=== PATIENT | female | born 1950 | race Caucasian/White ===

== ENCOUNTER → 2020-09-16 11:49 | Outpatient (BNVA) | payer MEDICARE, SELFPAY | PROVIDERS: PCP Nurse Practitioner Family; Visit Provider Nurse Practitioner Family | DX: I10 Essential (primary) hypertension (principal); Z96.643 Presence of artificial hip joint, bilateral; I89.0 Lymphedema, not elsewhere classified; F32.9 Major depressive disorder, single episode, unspecified; K21.9 Gastro-esophageal reflux disease without esophagitis; G25.81 Restless legs syndrome; I82.409 Acute embolism and thrombosis of unspecified deep veins of unspecified lower extremity; E03.9 Hypothyroidism, unspecified; M19.90 Unspecified osteoarthritis, unspecified site; Z68.22 Body mass index [BMI] 22.0-22.9, adult; Z77.22 Contact with and (suspected) exposure to environmental tobacco smoke (acute) (chronic); Z71.89 Other specified counseling | CPT/HCPCS: 80053; 80061; 82306; 82607; 83735; 84439; 84443; 85025 ==

== ENCOUNTER 2020-09-23 06:00 | Outpatient (RCR) | payer MEDICARE, SELFPAY | END 2020-10-11 23:59 | disposition home or self-care (01) | LOC: SPT 06:00 | PROVIDERS: PCP Nurse Practitioner Family; Referring Provider Nurse Practitioner Family; Visit Provider Nurse Practitioner Family | DX: I89.0 Lymphedema, not elsewhere classified (principal); Z47.1 Aftercare following joint replacement surgery; Z96.643 Presence of artificial hip joint, bilateral | CPT/HCPCS: 29581; 97140; 97161 ==

== ENCOUNTER 2020-11-02 15:50 | Inpatient (IN) | payer MEDICARE, SELFPAY ==
[2020-11-02] VITALS (29 sets, daily range): BP systolic 76–146; BP diastolic 55–107; PULSE 91–170; RESP 15–24; O2SAT 55–97; BMI 28.8
[2020-11-02 16:11] LABS: ABG PCO2 24.6 mmHg (35-45); ABG PH Result 7.49 (7.35-7.45); Arterial Blood Gas Hematocrit 26.4 % (37-47); Base Excess ABG -3.6 mmol/L (-2.0-2.0); Blood Gas Allen Test Pos; Blood Gas Operator Identificat MONRO; Blood Gas Sample Site Radial, right; Blood Gas Sample Type Arterial; Carboxyhemoglobin 0.3 %THgb (0.4-20.1); HCO3 ABG 18.9 mmol/L (22-26); HGB O2 Sat 91.7 % (95-100); Ionized Calcium Level - ABG 1.1 mmol/L (1.1-1.4); Methemoglobin 2.7 % (0.4-1.5); Oxygen Device NC; Oxygen Saturation ABG 94.6; PO2 ABG 72.3 mmHg (80.0-100.0); Potassium Level - ABG 3.4 mmol/L (3.5-5.0); Total Hemoglobin 8.6 g/dL (12-16)
--- NOTE | 2020-11-02 16:32 | XRR_ITS ---
PROCEDURE INFORMATION: Exam: XR Chest Exam date and time: 11/02/2020 4:32 PM Age: 69 years old Clinical indication: Device placement; Other: Central line placement TECHNIQUE: Imaging protocol: XR of the chest. Views: 1 view. COMPARISON: No relevant prior studies available. FINDINGS: Tubes, catheters and devices: Right neck central venous catheter terminates distal superior vena cava. Lungs: Unremarkable. No consolidation. Densely calcified granuloma left lateral mid lung zone. Pleural spaces: Small volume left pleural effusion. Negative for pneumothorax. Heart/Mediastinum: Unremarkable. No cardiomegaly. Bones/joints: Unremarkable. Intraperitoneal space: Surgical changes in the upper abdomen. XR/XR chest 1V portable [id number] IMPRESSION: 1. Satisfactory central venous catheter positional. 2. No acute pulmonary complication.
--- NOTE | 2020-11-02 16:40 | ED_ITS ---
HPI - Altered Mental Status General: Chief Complaint: Neuro Symptoms/Deficit Stated Complaint: HYPOTENSION; SLURRED SPEECH Time Seen by Provider: 11/02/20 16:40 History of Present Illness: HPI narrative: Ms. Olvera is a 69-year-old lady with somewhat unclear past medical history presents to the emergency department due to altered mental status and hypotension. Per EMS report symptom onset was a number of days ago though the exact time of onset was unclear. There is perhaps progressive worsening of symptoms and patient is now altered. Per chart review she has a history of infected right hip prosthesis requiring removal leading to chronic pain and debility. Additionally she perhaps has GERD. History otherwise limited by altered mental status and acuity of condition. 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, has had infection around prosthesis GERD (gastroesophageal reflux disease) History of infection right hip, treated in [place], [place] Hx of cervical cancer Hx pulmonary embolism Hypertension Hypothyroid TSH 09/16/20 0.92, Free T4 1.14 Lymphedema Osteoarthritis Restless leg Surgical History (Updated 11/02/20 @ 20:53 by Olivia Brooks MD) Hx of bilateral hip replacements Hx of gastric bypass Hx of hysterectomy Family History (Updated 11/02/20 @ 21:51 by Olivia Brooks MD) Denies family history of Anesthesia complication Social History (Updated 11/02/20 @ 21:51 by Olivia Brooks MD) Smoking and tobacco status: never smoked Second hand smoke exposure: Yes Alcohol intake: current Alcohol intake frequency: few times a month Alcohol type: wine Caregiver/support person: Yes Lives independently: No Household members: significant other Marital status: Current occupational status: retired Current occupation: RN Current gender identity: Female Special keesha needs: No Agree to transfusion: Yes Physical Exam Narrative: EXAM NARRATIVE: GENERAL/CONSTITUTIONAL -ill-appearing. Distressed. Eyes - PERRL, no conjunctival injection ENMT - Atraumatic external nose and ears. Dry mucous membranes NECK - supple. trachea midline CARDIOVASCULAR - regular rate and rhythm. RESPIRATORY -coarse to auscultation bilaterally. No retractions or accessory muscle use. ABDOMEN/GI -mild tenderness diffusely, Nondistended. No tenderness to percussion or evidence of peritonitis MSK -there is internal rotation and obvious abnormality to the right hip consistent with reported history SKIN -cool, Dry. Sacral skin breakdown as well as scattered other areas of skin breakdown. NEURO -alert to painful stimuli, no meaningful history. Patient moaning. PSYCH -impaired cognition and memory Procedures ABG Interpretation ABG Interpretation 1: ABG Results: 7.49, 24.6, 72.3, 18.9 Interpretation: abnormal Additional Comments: Likely primary metabolic derangement with respiratory compensation. Arterial Line Time Out Performed: Yes Size (Gauge): 20 Technique Used: guide wire technique Post-Procedure: dry sterile dressing placed Patient Tolerated Procedure: well Complications: none Site: right Additional Comments: First attempted left and was unable to thread wire despite flash. Dressing applied with compression. Central Line Placement Right IJ: Time Out Performed: Yes Patient Placed on Monitor/Pulse Ox: Yes MD Prep: mask, gown and gloves Central Line Prep: Povidone-Iodine 1% and Chlorhexidine scrub Local Anesthetic: lidocaine 1% Amount of anesthesia used (mL): 3 Ultrasound Used for Placement: Yes Central Line Lumen Inserted: triple Post Procedure: sutured in place, good blood return, all ports aspirated, flushed, capped and sterile dressing applied Post Procedure X-Ray: tip of catheter in good position Patient Tolerated Procedure: well Complications: none Course ED course: - Patient was seen and evaluated by me at bedside - Patient placed on cardiac monitors, IV access obtained - Initial evaluation notable for ill appearance, patient with altered mental status. -Extreme difficulty with IV access. Despite [id number] ultrasound for peripheral IV no suitable vein was identified due to degree of anasarca. Central line placed under emergent conditions. -Fluids and antibiotics ordered. - Labs notable for leukopenia, macrocytic anemia. Metabolic panel without obvious abnormality to explain patient's profound condition - Imaging notable for no acute intracranial hemorrhage or mass. No other significant internal traumatic injury or obvious source of infection. Abnormal right hip arthroplasty as described in history -Since initial arrival blood pressure has been difficult to track. Arterial line inserted. - Based on patient history, evaluation, labs, and imaging as interpreted the most likely cause of the patient's condition is unclear, the patient is critically ill with multiorgan dysfunction. - patient's fianc? updated -Hospitalist service consulted and agreed to admit the patient. - Patient was admitted in critical condition Vital Signs: Vital signs: Vital Signs Temperature 0 F L 11/03/20 13:18 Pulse Rate 0 L 11/03/20 13:18 Respiratory Rate 0 L 11/03/20 13:18 Blood Pressure 0/0 11/03/20 13:18 Pulse Oximetry 0 L 11/03/20 13:18 MDM - Altered Mental Status Lab Data: Labs: Lab Results 11/02/20 11/02/20 11/02/20 Range/Units 15:58 17:06 17:06 WBC (4.0-10.0) 10^3/ uL RBC (4.1-5.3) 10^6/u L Hgb (11.5-15.3) g/dL Hct (37.0-47.0) % MCV (81-99) fl MCH (28.0-34.0) pg MCHC (30.0-36.0) g/dL RDW (12.1-15.1) % Plt Count (130-400) 10^3/c mm MPV (7.4-10.4) fL Neut % (Auto) % Lymph % (Auto) % Smith % (Auto) % Eos % (Auto) % Baso % (Auto) % Neut # (Auto) (1.8-7.7) 10^3/u L Lymph # (Auto) (0.8-4.8) 10^3/u L Smith # (Auto) (0.2-0.9) 10^3/u L Eos # (Auto) (0.0-0.8) 10^3/u L Baso # (Auto) (0.0-0.1) 10^3/u L Nucleated RBC % (a uto) % Nucleated RBCs # /100WBC Specimen Type Arterial Sample Site Radial, right ABG pH 7.49 H (7.35-7.45) ABG pCO2 24.6 L (35-45) mmHg ABG pO2 72.3 L (80.0-100.0) mmH g ABG HCO3 18.9 L (22-26) mmol/L ABG O2 Saturation 94.6 ABG Base Excess -3.6 L (-2.0-2.0) mmol/ L Valentin Test Pos A-a O2 Gradient 16.0 H (5-10) mmHg Hematocrit 26.4 L (37-47) % Hgb O2 Saturation 91.7 L (95-100) % Carboxyhemoglobin 0.3 L (0.4-20.1) %THgb Methemoglobin 2.7 H (0.4-1.5) % Total Hemoglobin 8.6 L (12-16) g/dL Sodium 133.0 136 (131-143) mmol/L Potassium 3.4 L 3.6 (3.5-5.0) mmol/L Glucose 59.0 L 51 L (70-115) mg/dL Ionized Calcium 1.1 (1.1-1.4) mmol/L O2 Delivery Device Nc O2 Liters/Min 3.0 % FiO2 32.0 % Packing And Final Assembly Supervisor ID Monro Chloride 104 (98-107) mmol/L Carbon Dioxide 18 L (22-29) mmol/L Anion Gap 17.6 (5-19) BUN 36 H (8-23) mg/dL Creatinine 1.4 H (0.5-0.9) mg/dL GFR Calculation 37.5 L (90-130) mL/min Calculated Osmolal ity 288 (285-295) mOsm/k g Lactic Acid 3.2 H (0.5-2.2) mmol/L Calcium 7.1 L (8.5-10.5) mg/dL Total Bilirubin 1.0 (0.15-1.2) mg/dL AST 32 (0-32) U/L ALT 23 (0-33) U/L Alkaline Phosphata se 156 H (35-105) IU/L Creatine Kinase 103 (26-192) U/L Troponin T Baselin e (0-10) ng/L NT-Pro-B Natriuret Pep 8507 H (0-125) pg/mL Total Protein 3.2 L (6.6-8.7) g/dL Albumin 1.5 L (3.5-5.2) g/dL Globulin 1.7 (1.3-4.6) g/dL Procalcitonin 34.16 H (0-0.5) ng/mL 11/02/20 11/02/20 Range/Units 17:06 17:06 WBC 1.9 L (4.0-10.0) 10^3/ uL RBC 2.49 L (4.1-5.3) 10^6/u L Hgb 8.4 L (11.5-15.3) g/dL Hct 26.6 L (37.0-47.0) % MCV 106.8 H (81-99) fl MCH 33.7 (28.0-34.0) pg MCHC 31.6 (30.0-36.0) g/dL RDW 20.8 H (12.1-15.1) % Plt Count 208 (130-400) 10^3/c mm MPV 10.6 H (7.4-10.4) fL Neut % (Auto) 84.6 % Lymph % (Auto) 9.0 % Smith % (Auto) 4.8 % Eos % (Auto) 0.5 % Baso % (Auto) 1.1 % Neut # (Auto) 1.60 L (1.8-7.7) 10^3/u L Lymph # (Auto) 0.2 L (0.8-4.8) 10^3/u L Smith # (Auto) 0.1 L (0.2-0.9) 10^3/u L Eos # (Auto) 0.0 (0.0-0.8) 10^3/u L Baso # (Auto) 0.0 (0.0-0.1) 10^3/u L Nucleated RBC % (a uto) 0 % Nucleated RBCs # 0.0 /100WBC Specimen Type Sample Site ABG pH (7.35-7.45) ABG pCO2 (35-45) mmHg ABG pO2 (80.0-100.0) mmH g ABG HCO3 (22-26) mmol/L ABG O2 Saturation ABG Base Excess (-2.0-2.0) mmol/ L Valentin Test A-a O2 Gradient (5-10) mmHg Hematocrit (37-47) % Hgb O2 Saturation (95-100) % Carboxyhemoglobin (0.4-20.1) %THgb Methemoglobin (0.4-1.5) % Total Hemoglobin (12-16) g/dL Sodium (131-143) mmol/L Potassium (3.5-5.0) mmol/L Glucose (70-115) mg/dL Ionized Calcium (1.1-1.4) mmol/L O2 Delivery Device O2 Liters/Min % FiO2 % Packing And Final Assembly Supervisor ID Chloride (98-107) mmol/L Carbon Dioxide (22-29) mmol/L Anion Gap (5-19) BUN (8-23) mg/dL Creatinine (0.5-0.9) mg/dL GFR Calculation (90-130) mL/min Calculated Osmolal ity (285-295) mOsm/k g Lactic Acid (0.5-2.2) mmol/L Calcium (8.5-10.5) mg/dL Total Bilirubin (0.15-1.2) mg/dL AST (0-32) U/L ALT (0-33) U/L Alkaline Phosphata se (35-105) IU/L Creatine Kinase (26-192) U/L Troponin T Baselin e 28 H (0-10) ng/L NT-Pro-B Natriuret Pep (0-125) pg/mL Total Protein (6.6-8.7) g/dL Albumin (3.5-5.2) g/dL Globulin (1.3-4.6) g/dL Procalcitonin (0-0.5) ng/mL Critical Care Time Critical Care Time: Critical Care Time: Yes Total Critical Care Time: 120 Attestation: This case had a high probability of a clinically significant, sudden, or life threatening deterioration of this patient's condition which required my full and direct attention, intervention and personal management. Discharge Plan Discharge Patient Disposition: Admitted As Inpatient Admit Provider: Olivia Brooks Coding Level of Care Code ED Traffic Division Commanding Officer for Bennett Santiago
--- NOTE | 2020-11-02 16:42 | CTR_ITS ---
PROCEDURE INFORMATION: Exam: CT Chest With Contrast; Diagnostic Exam date and time: 11/02/2020 4:42 PM Age: 69 years old Clinical indication: Injury or trauma; Fall; Generalized; Blunt trauma (contusions or hematomas); Prior surgery; Additional info: AMS TECHNIQUE: Imaging protocol: Diagnostic computed tomography of the chest with contrast. Radiation optimization: All CT scans at this facility use at least one of these dose optimization techniques: automated exposure control; mA and/or kV adjustment per patient size (includes targeted exams where dose is matched to clinical indication); or iterative reconstruction. Contrast material: OMNIPAQUE 300; Contrast volume: 95 ml; Contrast route: INTRAVENOUS (IV); COMPARISON: CR (CHEST, ) 11/02/2020 4:29 PM RADIATION DOSE METRICS: Total DLP (mGy-cm): 1869.43 FINDINGS: Tubes, catheters and devices: Right neck central venous catheter enters right internal jugular vein and terminates in the distal superior vena cava in good position. Lungs: Lower lobe compressive atelectasis. Negative for pulmonary injury. Large densely calcified lateral left upper lobe granuloma. Pleural spaces: Moderately large bilateral pleural effusions. Heart: Unremarkable. No cardiomegaly. No pericardial effusion. Mediastinal space: No mediastinal hematoma. Aorta: Unremarkable. No aortic aneurysm. Lymph nodes: Unremarkable. No enlarged lymph nodes. Bones/joints: There are multiple bilateral rib fractures with healing bone callus demonstrated. No definite acute thoracic fractures are identified. Thoracic spinal alignment is anatomic. Soft tissues: There is diffuse subcutaneous soft tissue edema throughout the imaged upper arms and the posterior thorax consistent with body wall anasarca. Soft tissue air on the ventral surface of the right upper arm extending into the right anterior chest wall. Of soft tissue defect is suspected on the ventral surface of the right upper arm. IMPRESSION: 1. Soft tissue injury in the right upper arm. 2. No acute intrathoracic injury. 3. Generalized 3rd spacing of fluid. PROCEDURE INFORMATION: Exam: CT Abdomen And Pelvis With Contrast Exam date and time: 11/02/2020 4:42 PM Age: 69 years old Clinical indication: Injury or trauma; Fall; Generalized; Blunt trauma (contusions or hematomas); Prior surgery; Additional info: AMS TECHNIQUE: Imaging protocol: Computed tomography of the abdomen and pelvis with contrast. Radiation optimization: All CT scans at this facility use at least one of these dose optimization techniques: automated exposure control; mA and/or kV adjustment per patient size (includes targeted exams where dose is matched to clinical indication); or iterative reconstruction. Contrast material: OMNIPAQUE 300; Contrast volume: 95 ml; Contrast route: INTRAVENOUS (IV); COMPARISON: CR (CHEST, ) 11/02/2020 4:29 PM RADIATION DOSE METRICS: Total DLP (mGy-cm): 1869.43 FINDINGS: Liver: Normal. No mass. Gallbladder and bile ducts: Cholecystectomy. Mild ectasia of biliary system. Pancreas: Normal. No ductal dilation. Spleen: Normal. No splenomegaly. Adrenal glands: Normal. No mass. Kidneys and ureters: Normal. No hydronephrosis. Stomach and bowel: Surgical changes of stomach. Diffuse nonspecific reactive bowel wall thickening changes. Appendix: No evidence of appendicitis. Intraperitoneal space: Unremarkable. No free air. No significant fluid collection. Vasculature: Vascular structures are patent without injury. Lymph nodes: Unremarkable. No enlarged lymph nodes. Urinary bladder: There is an ovoid peripherally enhancing fluid-filled or cystic mass in the anterior pelvis to the right of midline with some mild mass effect on the bladder of uncertain significance and etiology. Reproductive: Unremarkable as visualized. Bones/joints: Comminuted, severely distracted fracture lucencies of the right acetabulum are noted. There is severe lateral displacement of the right acetabular component of the hip arthroplasty. 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 There is significant superior migration of the femur relative to the acetabulum. Age indeterminate nondisplaced right inferior pubic ramus fracture. Left hip arthroplasty has unremarkable alignment. Soft tissues: Extensive body wall anasarca. Lumbar paraspinal musculature is atrophic but otherwise unremarkable. Peripherally enhancing fluid collection in the lateral soft tissues of the proximal right thigh extending inferior from the displaced acetabular cup adjacent to the lateral margin of the proximal femur. CT/CT chest abd pel w con* IMPRESSION: 1. The right hip arthroplasty is dislocated. 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 The acetabular cup is completely displaced from the acetabulum and is lateral to the femur. Distracted fractures of the right acetabulum noted. Circumscribed peripherally enhancing fluid collections are present around the region of dislocation. 2. There is generalized 3rd spacing of fluid. 3. No acute intra-abdominal injury is seen. 4. Circumscribed fluid collection of the anterior inferior pelvis to the right of midline superior to the pubic symphysis of uncertain etiology. Radiation Dose CTDIVOL = (mGy): DLP = 1869.43~1869.43 (mGy-cm)
--- NOTE | 2020-11-02 16:42 | CTR_ITS ---
PROCEDURE INFORMATION: Exam: CT Cervical Spine Without Contrast Exam date and time: 11/02/2020 4:42 PM Age: 69 years old Clinical indication: Neck pain; Additional info: AMS TECHNIQUE: Imaging protocol: Computed tomography images of the cervical spine without contrast. Radiation optimization: All CT scans at this facility use at least one of these dose optimization techniques: automated exposure control; mA and/or kV adjustment per patient size (includes targeted exams where dose is matched to clinical indication); or iterative reconstruction. COMPARISON: CT head wo con* [id number] 11/02/2020 5:57 PM RADIATION DOSE METRICS: Total DLP (mGy-cm): 511.74 FINDINGS: Tubes, catheters and devices: Central venous catheter enters the right internal jugular vein, incompletely assessed. Vertebrae: No acute fracture. Normal alignment. The cervical spine demonstrates moderate degenerative changes at multiple levels. Severe disc disease at C5-C6. Multilevel disc bulges and facet joint arthropathy noted. Soft tissues: Cervical paraspinal soft tissues are unremarkable. There is generalized soft tissue edema throughout the subcutaneous fat of the posterior neck and upper thorax area. Lungs: Lung apices are normal. Pleural space: Partial visualization of a left-sided pleural effusion. CT/CT cervical spin wo con* [id number] IMPRESSION: No acute cervical spine abnormality. Radiation Dose CTDIVOL = (mGy): DLP = 511.74 (mGy-cm)
--- NOTE | 2020-11-02 16:42 | CTR_ITS ---
PROCEDURE INFORMATION: Exam: CT Head Without Contrast Exam date and time: 11/02/2020 4:42 PM Age: 69 years old Clinical indication: Altered mental status/memory loss; Confusion or disorientation; Additional info: AMS TECHNIQUE: Imaging protocol: Computed tomography of the head without contrast. Radiation optimization: All CT scans at this facility use at least one of these dose optimization techniques: automated exposure control; mA and/or kV adjustment per patient size (includes targeted exams where dose is matched to clinical indication); or iterative reconstruction. COMPARISON: No relevant prior studies available. RADIATION DOSE METRICS: Total DLP (mGy-cm): 887.4 FINDINGS: Brain: Normal. No hemorrhage. Unremarkable white matter. No mass effect. Cerebral ventricles: No ventriculomegaly. Paranasal sinuses: Visualized sinuses are unremarkable. No fluid levels. Mastoid air cells: Visualized mastoid air cells are well aerated. Bones/joints: Unremarkable. No acute fracture. Soft tissues: Unremarkable. CT/CT head wo con* [id number] IMPRESSION: No acute intracranial abnormality. Radiation Dose CTDIVOL = (mGy): DLP = 887.4 (mGy-cm)
--- NOTE | 2020-11-02 17:05 | ECG_ITS ---
[facility] Test Date: 2020-11-02 Pat Name: Delfino Olvera Department: Room: Gender: Female Terrazzo Mechanic: : 1950 Requested By: Devin Perkins Order Number: [id number] Mila MD: Betty Membreno M.D. Measurements Intervals [place] Rate: 107 P: 74 AR: 131 QRS: 64 QRSD: 85 T: 72 QT: 338 QTc: 453 Interpretive Statements SINUS TACHYCARDIA WITH OCCASIONAL VENTRICULAR PREMATURE COMPLEXES WITH OCCASIONAL SUPRAVENTRICULAR PREMATURE COMPLEXES LOW QRS VOLTAGE IN EXTREMITY LEADS [QRS DEFLECTION < 0.5 mV IN LIMB LEADS] No previous ECG available for comparison Electronically Signed On 11-03-2020 13:06:36 CDT by Betty Membreno M.D. [id number]
[2020-11-02] MEDS: lactated ringers 1,000 ML 999 ML IV ×2 (17:10→20:50)
[2020-11-02 17:47] LABS: Basophils % 1.1 %; Eosinophils % 0.5 %; Hematocrit 26.6 % (37.0-47.0); Hemoglobin 8.4 g/dL (11.5-15.3); Lymphocytes # 0.2 10^3/uL (0.8-4.8); Mean Corpuscular HGB Conc 31.6 g/dL (30.0-36.0); Mean Corpuscular Hemoglobin 33.7 pg (28.0-34.0); Mean Corpuscular Volume 106.8 fl (81-99); Mean Platelet Volume 10.6 fL (7.4-10.4); Monocytes # 0.1 10^3/uL (0.2-0.9); Monocytes % 4.8 %; Neutrophils % 84.6 %; Nucleated Red Blood Cells % 0 %; Platelet Count 208 10^3/cmm (130-400); Red Blood Count 2.49 10^6/uL (4.1-5.3); Red Cell Distribution Width 20.8 % (12.1-15.1); White Blood Count 1.9 10^3/uL (4.0-10.0)
[2020-11-02 18:06] LABS: Lactic Sepsis W/Reflex 3.2 mmol/L (0.5-2.2)
[2020-11-02 18:07] LABS: Troponin(5th) Baseline 28 ng/L (0-10)
[2020-11-02 18:13] LABS: NT Pro B Type Natriuretic Pept 8507 pg/mL (0-125); Procalcitonin 34.16 ng/mL (0-0.5)
[2020-11-02] MEDS: iohexol 300 mg/mL 100 mL Btl IV (18:18)
[2020-11-02 18:20] LABS: Slide Review Slide Review Perform
[2020-11-02 18:25] LABS: Alanine Aminotransferase 23 U/L (0-33); Albumin Level 1.5 g/dL (3.5-5.2); Alkaline Phosphatase 156 IU/L (35-105); Anion Gap 17.6 (5-19); Aspartate Amino Transferase 32 U/L (0-32); Blood Urea Nitrogen 36 mg/dL (8-23); Calcium 7.1 mg/dL (8.5-10.5); Carbon Dioxide 18 mmol/L (22-29); Chloride 104 mmol/L (98-107); Creatine Phosphokinase 103 U/L (26-192); Globulin 1.7 g/dL (1.3-4.6); Glomerular Filtration Rate 37.5 mL/min (90-130); Glucose 51 mg/dL (65-115); Osmolality Calculated 288 mOsm/kg (285-295); Potassium 3.6 mmol/L (3.5-5.1); Sodium 136 mmol/L (136-145); Total Protein 3.2 g/dL (6.6-8.7)
[2020-11-02 18:51] LABS: Reflex Lactate Order REFLEX LACTIC ORDERD
--- NOTE | 2020-11-02 19:05 | ECG_ITS ---
[facility] Test Date: 2020-11-02 Pat Name: Delfino Olvera Department: Room: ICU12 Gender: Female Manager It Security: : 1950 Requested By: Devin Perkins Order Number: [id number] Mila MD: Christofer Phelan M.D. Measurements Intervals [place] Rate: 129 P: 112 NH: 146 QRS: 52 QRSD: 90 T: 66 QT: 294 QTc: 431 Interpretive Statements SINUS TACHYCARDIA WITH FREQUENT VENTRICULAR PREMATURE COMPLEXES WITH OCCASIONAL SUPRAVENTRICULAR PREMATURE COMPLEXES LOW QRS VOLTAGE [QRS DEFLECTION < 0.5/1.0 mV IN LIMB/CHEST LEADS] Compared to ECG 11/02/2020 16:00:48 No significant changes Electronically Signed On 11-04-2020 17:16:52 CDT by Christofer Phelan M.D. [id number]
[2020-11-02] MEDS: dextrose 50% syringe 50 mL IVP ×2 (19:07→21:06)
[2020-11-02] MEDS: piperacillin-tazobactam 4.5 GM in sodium chloride 0.9% (plus) 50 ML IV (19:17)
--- NOTE | 2020-11-02 20:46 | PC.NURSE ---
report called to [place]
--- NOTE | 2020-11-02 20:47 | P.HP_ITS ---
Providers/Chief Complaint Admitting Physician: Olivia Brooks MD Primary Care Provider: ANDREW Witt Chief Complaint: HYPOTENSION; SLURRED SPEECH History of Present Illness Delfino Olvera is a 69 year old female who was brought to the emergency room with significant weakness and not acting like herself the last couple of days. 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 ER provider was able to talk to the but he left and I have not been able to reach him to get any further details. Patient can provide some information but not to a great degree. She states that the last time her hip was drained was in September and at that point in time the infection was cleared. She confirmed that the hip is chronically dislocated. She is significantly hypotensive and not able to get pain medication currently due to this and is hurting all over and uncomfortable. I cannot get specific details about what has happened the last couple of days. Work-up in the emergency room revealed evidence of sepsis and septic shock. She is received fluids, antibiotics, started on pressor support. She has multiple abnormalities as will be outlined below. CT imaging shows some fluid collections around the hip although I do not have any comparative studies. I spoke with orthopedics and they indicated that the the findings on CT scan were beyond what they would take care of. Currently patient is too unstable for consideration of transfer or surgical intervention. I spoke with her and she herself does wish to be full code. She is in critical condition. Review of Systems General: Reports: ROS unobtainable due to medical condition (Limited due to current critical illness) Const: Denies: fever(s) ENMT: Reports: dry mouth; Denies: throat pain Card: Denies: chest pain Resp: Denies: productive cough or non-productive cough GI: Reports: abdominal pain; Denies: vomiting or diarrhea : Reports: oliguria Musc: Reports: back pain, extremity pain, joint swelling and other (Chronically dislocated right hip); Denies: neck pain Skin/Breast: Reports: non-healing lesions (Multiple wounds) Neuro: Reports: difficulty walking (Not walking); Denies: headache(s) Jose A/Lymph: Denies: easy bleeding Medications/Allergies Home Medications Medication Instructions Recorded Confirmed Last Taken Type acetaminophen 500 mg tablet 500 mg PO Q6H PRN 09/16/20 11/02/20 Unknown History buspirone 5 mg tablet 5 mg PO BID 09/16/20 11/02/20 Unknown History carvedilol 3.125 mg tablet 3.125 mg PO BID 09/16/20 11/02/20 Unknown History celecoxib 100 mg capsule 100 mg PO BID 09/16/20 11/02/20 Unknown History furosemide 40 mg tablet 40 mg PO QAM 09/16/20 11/02/20 Unknown History levothyroxine 150 mcg tablet 150 mcg PO DAILY 09/16/20 11/02/20 Unknown History multivitamin with iron 1 tab PO BID tab 09/16/20 11/02/20 Unknown History pantoprazole 40 mg tablet,delayed 40 mg PO DAILY 09/16/20 11/02/20 Unknown History release pramipexole 0.5 mg tablet 0.5 mg PO DAILY 09/16/20 11/02/20 Unknown History pregabalin 50 mg capsule 50 mg PO BID PRN 09/16/20 11/02/20 Unknown History tramadol 50 mg tablet 50 mg PO Q6H PRN 09/16/20 11/02/20 Unknown History vitamin E 200 unit capsule 400 unit PO DAILY cap 09/16/20 11/02/20 Unknown History calcium carbonate 600 mg calcium 600 mg PO BID #60 tab 09/23/20 11/02/20 Unknown Rx (1,500 mg) tablet magnesium oxide 400 mg (241.3 mg 400 mg PO DAILY #30 tab 09/23/20 11/02/20 U nknown Rx magnesium) tablet aspirin 81 mg PO DAILY 11/02/20 11/02/20 Unknown History biotin 1 mg PO DAILY 11/02/20 11/02/20 Unknown History bumetanide 1 mg PO DAILY 11/02/20 11/02/20 Unknown History cholecalciferol (vitamin D3) 25 mcg PO DAILY 11/02/20 11/02/20 Unknown History [Vitamin D3] cyanocobalamin (vitamin B-12) 1,000 mcg IM Q7D 11/02/20 11/02/20 Unknown History docusate sodium [DOK] 200 mg PO BID 11/02/20 11/02/20 Unknown History nitroglycerin [Nitrostat] 0.4 mg SUBLINGUAL Q5M PRN 11/02/20 11/02/20 Unknown History potassium chloride 20 meq PO DAILY MDD SEE PHARMACY 11/02/20 11/02/20 Unknown History COMMENT pyridoxine (vitamin B6) [Vitamin 25 mg PO DAILY 11/02/20 11/02/20 Unknown History B-6] rivaroxaban [Xarelto] 15 mg PO DAILY 11/02/20 11/02/20 Unknown History trazodone 100 mg PO BEDTIME 11/02/20 11/02/20 Unknown History Allergies Allergy/AdvReac Type Severity Reaction Status Date / Time acetaminophen Allergy ADR-Vomitin Verified 09/16/20 10:28 [From Lorcet (hydrocodone)] g codeine Allergy ADR-Vomitin Verified 09/16/20 10:28 g hydrocodone Allergy ADR-Vomitin Verified 09/16/20 10:28 [From Lorcet (hydrocodone)] g PFSH Acute PFSH: Medical History (Updated 11/02/20 @ 21:50 by Olivia Brooks MD) Chronic anticoagulation xarelto, for DVT Depression DVT (deep venous thrombosis) left lower extremity 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, 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, has had infection around prosthesis GERD (gastroesophageal reflux disease) History of infection right hip, treated in [place], [place] Hx of cervical cancer Hx pulmonary embolism Hypertension Hypothyroid TSH 09/16/20 0.92, Free T4 1.14 Lymphedema Osteoarthritis Restless leg Surgical History (Updated 11/02/20 @ 20:53 by Olivia Brooks MD) Hx of bilateral hip replacements Hx of gastric bypass Hx of hysterectomy Family History (Updated 11/02/20 @ 21:51 by Olivia Brooks MD) Denies family history of Anesthesia complication Social History (Updated 11/02/20 @ 21:51 by Olivia Brooks MD) Smoking and tobacco status: never smoked Second hand smoke exposure: Yes Alcohol intake: current Alcohol intake frequency: few times a month Alcohol type: wine Caregiver/support person: Yes Lives independently: No Household members: significant other Marital status: Current occupational status: retired Current occupation: RN Current gender identity: Female Special keesha needs: No Agree to transfusion: Yes Vitals/I&O/Wt Last Vital Signs Pulse 138 H 11/02/20 19:30 Resp 19 H 11/02/20 19:30 BP 86/64 11/02/20 19:30 Pulse Ox 94 11/02/20 16:29 11/02/20 11/02/20 11/02/20 06:59 14:59 22:59 Intake Total 1002.921 / 1002.921 Balance 1002.921 / 1002.921 Weight last 48 hrs Weight 86.183 kg Physical Exam Narrative: EXAM NARRATIVE: Constitutional: Chronically and acutely ill-appearing, moaning in discomfort but will stop and make eye contact and answer simple questions HEENT: Normocephalic, extraocular movements are intact, pupils are reactive, nasopharynx is clear, oropharynx is very dry Neck: Fair range of motion, no nuchal rigidity Respiratory: Tachypneic, clear anteriorly, no wheezes, shallow respirations with decreased breath sounds at bases Cardiovascular: Tachycardic, regular rhythm, no obvious murmurs, capillary refill 3 seconds Abdomen: Soft, no obvious tenderness, decreased bowel sounds : Charles catheter is in place with dark urine Extremities: Hands are puffy, lower extremities with some deformities and pain with movement, right lower extremity is smaller in diameter than left lower extremity but both have edema, no externally obvious joint effusions, neither hip seems more tender than the other hip Skin: Decubitus to the sacral area with ecchymoses, small pinpoint opening but no drainage, no fluctuance, ulceration to the right lateral foot with eschar formation approximately 6 cm x 2 cm, both heels are soft, a couple of small ulcers to both ankles and distal extremities in different stages of healing, all were dressed with dressings removed, multiple areas of ecchymoses to both upper extremities Neuro: Will follow simple commands such as hand human resources executive, opening and closing mouth, eye movements and answer questions with 1-2 word answers or nods of her head, answers to questions are consistent and asked more than once, can human resources executive with each hand though generally weak, moves both lower extremities when trying to adjust herself in bed but does not move them when asked Psych: Hurting a lot, wanting something for pain Data : 11/03/20 04:15 11/03/20 04:15 Other Labs: Laboratory Results WBC 1.9 10^3/uL (4.0-10.0) L 11/02/20 17:06 RBC 2.49 10^6/uL (4.1-5.3) L 11/02/20 17:06 Hgb 8.4 g/dL (11.5-15.3) L 11/02/20 17:06 Hct 26.6 % (37.0-47.0) L 11/02/20 17:06 MCV 106.8 fl (81-99) H 11/02/20 17:06 MCH 33.7 pg (28.0-34.0) 11/02/20 17:06 MCHC 31.6 g/dL (30.0-36.0) 11/02/20 17:06 RDW 20.8 % (12.1-15.1) H 11/02/20 17:06 Plt Count 208 10^3/cmm (130-400) 11/02/20 17:06 MPV 10.6 fL (7.4-10.4) H 11/02/20 17:06 Neut % (Auto) 84.6 % 11/02/20 17:06 Lymph % (Auto) 9.0 % 11/02/20 17:06 [place] % (Auto) 4.8 % 11/02/20 17:06 Eos % (Auto) 0.5 % 11/02/20 17:06 Baso % (Auto) 1.1 % 11/02/20 17:06 Neut # (Auto) 1.60 10^3/uL (1.8-7.7) L 11/02/20 17:06 Lymph # (Auto) 0.2 10^3/uL (0.8-4.8) L 11/02/20 17:06 [place] # (Auto) 0.1 10^3/uL (0.2-0.9) L 11/02/20 17:06 Eos # (Auto) 0.0 10^3/uL (0.0-0.8) 11/02/20 17:06 Baso # (Auto) 0.0 10^3/uL (0.0-0.1) 11/02/20 17:06 Nucleated RBC % (auto) 0 % 11/02/20 17:06 Nucleated RBCs # 0.0 /100WBC 11/02/20 17:06 PT 29.00 SECONDS (12.1-14.9) H 11/02/20 20:22 INR 2.68 (0.8-1.2) H 11/02/20 20:22 APTT 54.8 SECONDS (23.9-36.7) H 11/02/20 20:22 Specimen Type Arterial 11/02/20 20:56 Sample Site Radial, right 11/02/20 15:58 ABG pH 7.39 (7.35-7.45) 11/02/20 20:56 ABG pCO2 18.8 mmHg (35-45) L* 11/02/20 20:56 ABG pO2 74.3 mmHg (80.0-100.0) L 11/02/20 20:56 ABG HCO3 11.5 mmol/L (22-26) L 11/02/20 20:56 ABG O2 Saturation 94.6 11/02/20 15:58 ABG Base Excess -12.0 mmol/L (-2.0-2.0) L 11/02/20 20:56 Valentin Test N/a 11/02/20 20:56 A-a O2 Gradient 16.0 mmHg (5-10) H 11/02/20 15:58 Hematocrit 23.8 % (37-47) L 11/02/20 20:56 Hgb O2 Saturation 91.7 % (95-100) L 11/02/20 15:58 Carboxyhemoglobin 0.3 %THgb (0.4-20.1) L 11/02/20 15:58 Methemoglobin 2.7 % (0.4-1.5) H 11/02/20 15:58 Total Hemoglobin 8.6 g/dL (12-16) L 11/02/20 15:58 Sodium 133.0 mmol/L (131-143) 11/02/20 15:58 Potassium 3.4 mmol/L (3.5-5.0) L 11/02/20 15:58 Glucose 59.0 mg/dL (70-115) L 11/02/20 15:58 Ionized Calcium 1.1 mmol/L (1.1-1.4) 11/02/20 15:58 O2 Delivery Device Nc 11/02/20 20:56 O2 Liters/Min 5.0 % 11/02/20 20:56 FiO2 32.0 % 11/02/20 15:58 [place] ID Harkr 11/02/20 20:56 Sodium 136 mmol/L (136-145) 11/02/20 17:06 Potassium 3.6 mmol/L (3.5-5.1) 11/02/20 17:06 Chloride 104 mmol/L (98-107) 11/02/20 17:06 Carbon Dioxide 18 mmol/L (22-29) L 11/02/20 17:06 Anion Gap 17.6 (5-19) 11/02/20 17:06 BUN 36 mg/dL (8-23) H 11/02/20 17:06 Creatinine 1.4 mg/dL (0.5-0.9) H 11/02/20 17:06 GFR Calculation 37.5 mL/min (90-130) L 11/02/20 17:06 Glucose 51 mg/dL (65-115) L 11/02/20 17:06 POC Glucose 123 mg/dL (70-110) H 11/02/20 21:35 Calculated Osmolality 288 mOsm/kg (285-295) 11/02/20 17:06 Lactic Acid 3.2 mmol/L (0.5-2.2) H 11/02/20 17:06 Lactic Acid (Sepsis) 6.0 mmol/L (0.5-2.2) H* 11/02/20 19:46 Calcium 7.1 mg/dL (8.5-10.5) L 11/02/20 17:06 Total Bilirubin 1.0 mg/dL (0.15-1.2) 11/02/20 17:06 AST 32 U/L (0-32) 11/02/20 17:06 ALT 23 U/L (0-33) 11/02/20 17:06 Alkaline Phosphatase 156 IU/L (35-105) H 11/02/20 17:06 Creatine Kinase 103 U/L (26-192) 11/02/20 17:06 Troponin T Baseline 28 ng/L (0-10) H 11/02/20 17:06 Troponin T 120 Minute 28.10 ng/L (0-10) H 11/02/20 19:46 Delta Troponin T 0.10 ABS# (0-10) 11/02/20 19:46 NT-Pro-B Natriuret Pep 8507 pg/mL (0-125) H 11/02/20 17:06 Total Protein 3.2 g/dL (6.6-8.7) L 11/02/20 17:06 Albumin 1.5 g/dL (3.5-5.2) L 11/02/20 17:06 Globulin 1.7 g/dL (1.3-4.6) 11/02/20 17:06 Procalcitonin 34.16 ng/mL (0-0.5) H 11/02/20 17:06 Impressions Chest X-Ray 11/02/20 16:32 IMPRESSION: 1. Satisfactory central venous catheter positional. 2. No acute pulmonary complication. Cervical Spine CT 11/02/20 16:42 IMPRESSION: No acute cervical spine abnormality. Radiation Dose CTDIVOL = (mGy): DLP = 511.74 (mGy-cm) Chest/Abdomen/Pelvis CT 11/02/20 16:42 IMPRESSION: 1. The right hip arthroplasty is dislocated. 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 The acetabular cup is completely displaced from the acetabulum and is lateral to the femur. Distracted fractures of the right acetabulum noted. Circumscribed peripherally enhancing fluid collections are present around the region of dislocation. 2. There is generalized 3rd spacing of fluid. 3. No acute intra-abdominal injury is seen. 4. Circumscribed fluid collection of the anterior inferior pelvis to the right of midline superior to the pubic symphysis of uncertain etiology. Radiation Dose CTDIVOL = (mGy): DLP = 1869.43~1869.43 (mGy-cm) Head CT 11/02/20 16:42 IMPRESSION: No acute intracranial abnormality. Radiation Dose CTDIVOL = (mGy): DLP = 887.4 (mGy-cm) Micro: Microbiology 11/02/20 17:06 Blood Culture - Preliminary Blood SPECIMEN COLLECTED A&P Assessment and plan (1) Septic shock: As evidence by leukopenia, hypotension, tachycardia, acute kidney injury, acute encephalopathy, limited response to fluid resuscitation necessitating pressors, lactic acidosis, suspected infection with areas of concern being right hip which is had prior infection with details not clear at this point in time, sacral decubitus, right lower extremity pressure ulcer among some other ulcers that do not look quite as bad. CT imaging does show what is described as circumcised peripherally enhancing fluid collections around the region of the dislocation of the right hip. The dislocation is chronic per the patient and the fluid collection was last drained in September and did not show any organisms. Status: Acute (2) Hypoglycemia: secondary to above Status: Acute (3) Acute kidney injury: Currently felt secondary to above.Also on diuretics with both Bumex and Lasix listed on her medication list, Celebrex Status: Acute (4) History of infection: Has had infections in the right hip with fluid drainage, details unknown, has been treated at [facility], related to prior hip surgery Status: Chronic (5) Macrocytic anemia: Hemoglobin drop about 2 since September of this year. Was at upper limits of normal for MCV at that time. No reported gross bleeding but has multiple wounds that could contribute to slow blood loss. Also on chronic NSAID therapy in the form of Celebrex Status: Acute (6) Elevated brain natriuretic peptide (BNP) level: Baseline unknown, chronically on diuretics Status: Acute (7) Hypoalbuminemia: With significant decline since September of this year, contributing to third spacing Status: Acute (8) Sacral decubitus ulcer: Present on admission, ecchymoses and erythema over the area, not fluctuant but has 1 small pinpoint area with some slough over it, area of involvement is about 6 cm in diameter Status: Acute Qualifiers: Pressure injury stage: unspecified pressure injury stage Qualified Code(s): L89.159 - Pressure ulcer of sacral region, unspecified stage (9) Pressure ulcers of skin of multiple topographic sites: Ulcer with eschar formation and erythema to left lateral leg above the ankle, several ulcers to both feet/toes in different stages, both heels are soft, are present on admission. These are in addition to the sacral ulcer. Unable to adequately visualize the right hip posteriorly currently. Status: Acute (10) Chronic anticoagulation: On Xarelto chronically for history of DVT and PE Status: Chronic (11) Hx pulmonary embolism: Status: Chronic (12) DVT (deep venous thrombosis): history in left lower extremity Status: Chronic Qualifiers: Affected thrombotic vein of extremity: unspecified vein of extremity Chronicity: unspecified DVT location: lower extremity Laterality: unspecified laterality Qualified Code(s): I82.409 - Acute embolism and thrombosis of unspecified deep veins of unspecified lower extremity (13) Hypothyroid: Status: Chronic Qualifiers: Hypothyroidism type: unspecified Qualified Code(s): E03.9 - Hypothyroidism, unspecified (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: Right hip, with chronic dislocation and infection. Last cultures did not show growth per Mrs. Olvera. Eventual plan was for replacement by orthopedic surgeon at hospital in [place]. Status: Acute Qualifiers: Encounter type: sequela Laterality: right Qualified Code(s): T84.020S - Dislocation of internal right hip prosthesis, sequela (15) Hx of bilateral hip replacements: Done in [facility], right hip abnormalities noted Status: Chronic Additional A&P Information Inpatient admission ICU care Stat ABG Additional fluid bolus Continue Levophed, titrating up Add vasopressin as needed Broad-spectrum antibiotics with Primaxin and vancomycin, adding clindamycin given orthopedic/skin infection history I have spoken with orthopedics on-call regarding the findings on CT imaging around the hip, they state that this is beyond what they would handle and recommended transfer to a higher level of orthopedic care; currently patient is not stable enough for consideration of transfer and transfer will be difficult regardless due to need for ICU level care and current bed situation related to Covid. Current focus will be on trying to stabilize her for consideration of possible transfer. Attempting to get records from hospital in [place] where she has been treated for infections to her hips Lactobacillus Await urine Blood cultures were collected Chest x-ray without infiltrate Get baseline sed rate and CRP, expect both to be elevated Hold all home medications Add D5W for hypoglycemia, follow hypoglycemia protocol Currently unable to provide much pain control secondary to hypotension but will provide as soon as able Currently unable to verify exactly when she had her last dose of Xarelto, with drop in hemoglobin and potential need for invasive procedure, will provide prophylactic Lovenox in the morning if her H&H is stable PPI for GI prophylaxis Check Hemoccult of stool Check B12, folate, iron Serial H&H Check TSH, was normal a couple of months ago Strict I's and O's and monitoring of renal function CK level was normal Swat protocol for wounds, heel protectors,turn frequently Unable to place SCDs secondary to wounds to lower extremities Supportive care otherwise Patient's overall condition is critical and prognosis is guarded Anticipated discharge probable skilled placement versus home with home health versus potential transfer depending on clinical course Reviewed CODE STATUS with her and she does want all resuscitative efforts done Attestations Medical Necessity Statement*: Anticipated stay greater than 2 midnights and patient is critically ill as noted above. Plans for ICU management, treatment of sepsis with septic shock and other care as noted above. Critical Care Time: The high probability of a clinically significant, sudden o r life threatening deterioration of the patient's cardiovascular, pulmonary, renal, hematological, skin and musculoskeletal system(s) required my full and direct attention, intervention and personal management. The critical care time is as shown. This time is in addition to time spent performing any reported procedures but includes the following: [x] Data and vital sign review and interpretation [x] Patient assessment, examination and intervention [x] Documentation [x] Medication orders and management Critical Care Time (min): 150 Coding Level of Care Code Acute Director Technical for [facility] Fwd Diagnoses Septic shock A41.9; R65.21 Hypoglycemia E16.2 Acute kidney injury N17.9 History of infection Z86.19 Macrocytic anemia D53.9 Elevated brain natriuretic peptide (BNP) level R79.89 Hypoalbuminemia E88.09 Sacral decubitus ulcer L89.159 Pressure injury stage: unspecified pressure injury stage Pressure ulcers of skin of multiple topographic sites L89.90 Chronic anticoagulation Z79.01 Hx pulmonary embolism Z86.711 DVT (deep venous thrombosis) I82.409 Affected thrombotic vein of extremity: unspecified vein of extremity Chronicity: unspecified DVT location: lower extremity Laterality: unspecified laterality Hypothyroid E03.9 Hypothyroidism type: unspecified Failed total hip arthroplasty with dislocation T84.020S Encounter type: sequela Laterality: right Hx of bilateral hip replacements Z96.643
--- NOTE | 2020-11-02 21:05 | PC.PHAR ---
Vancomycin is dosed at 1500mg IVPB every 24 hours to produce a predicted trough level of 17.76 (population based pharmacokinetic analysis). A trough level has been ordered from the lab to be obtained before the fourth dose to confirm and adjust if needed.
[2020-11-02 21:07] LABS: ABG PCO2 18.8 mmHg (35-45); ABG PH Result 7.39 (7.35-7.45); Arterial Blood Gas Hematocrit 23.8 % (37-47); Blood Gas Operator Identificat HARKR; Blood Gas Sample Type Arterial; HCO3 ABG 11.5 mmol/L (22-26); Oxygen Device NC; PO2 ABG 74.3 mmHg (80.0-100.0)
[2020-11-02 21:15] LABS: Glucose Point of Care 27 mg/dL (70-110)
[2020-11-02 21:17] LABS: Glucose Point of Care 63 mg/dL (70-110)
[2020-11-02] MEDS: dextrose 10% 250 ML 999 ML IV (21:26)
[2020-11-02 21:38] LABS: INR 2.68 (0.8-1.2)
[2020-11-02 21:38] LABS: Glucose Point of Care 123 mg/dL (70-110)
[2020-11-02 21:39] LABS: Partial Thromboplastin Time 54.8 SECONDS (23.9-36.7)
[2020-11-02 21:49] LABS: C Reactive Protein 268.4 mg/L (0.0-4.9)
[2020-11-02 22:27] LABS: Erythrocyte Sedimentation Rate 40 mm/hr (0-15)
[2020-11-02] MEDS: sodium chloride 0.9% 1,000 ML 999 ML IV (22:44)
--- NOTE | 2020-11-02 23:05 | ECG_ITS ---
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 Measurements Intervals [place] Rate: 130 P: 78 KS: 133 QRS: 61 QRSD: 94 T: 88 QT: 314 QTc: 462 Interpretive Statements SINUS TACHYCARDIA WITH FREQUENT VENTRICULAR PREMATURE COMPLEXES WITH OCCASIONAL SUPRAVENTRICULAR PREMATURE COMPLEXES LOW QRS VOLTAGE [QRS DEFLECTION < 0.5/1.0 mV IN LIMB/CHEST LEADS] Compared to ECG 11/02/2020 16:00:48 No significant changes Electronically Signed On 11-04-2020 17:16:43 CDT by Christofer Phelan M.D. [email or web address]
[2020-11-02] MEDS: dextrose 5% 1,000 ML 75 ML IV ×2 (23:37→23:38)
[2020-11-02] MEDS: enoxaparin 40 mg/0.4 mL Syringe SUBCUT (23:59)
[2020-11-03] VITALS (52 sets, daily range): BP systolic 0–117; BP diastolic 0–83; PULSE 0–164; RESP 0–26; TEMP -17.7–36.6; O2SAT 0–97; BMI 25.9
--- NOTE | 2020-11-03 | USCV_ITS ---
Delfino Olvera Age: 69 Gender: F : 1950 Exam Date: 11/03/2020 08:52 Ordering Phys: Rogerio Lewis MD Technologist: Gloria Ibarra [place]am Location[place] [facility] [place] Indication: POST CODE HISTORY: Post Code PROCEDURES: Venous duplex imaging was performed in only the right lower extremity. The following venous structures were evaluated: common femoral vein, profunda vein, proximal portion of the greater saphenous vein, superficial femoral vein, and the popliteal vein. In addition, the posterior tibial and peroneal trunk were evaluated. Serial compression, augmentation maneuvers, and spectral Doppler flow evaluation were performed. Exam halted and lt not completed FINDINGS: Clotting materal form prox RT GSV is flowing into Rt cfv. Became difficult to even augment for flow. Pt's vitals dropped very low. CONCLUSIONS Partial exam only performed due to patient code Thrombus RT GSV into RT common femoral vein. Flow visualized in the popliteal vein Pankaj Ortiz MD (Electronically Signed) Final Date: 03 November 2020 17:19 S
[2020-11-03] MEDS: fentaNYL 50 mcg/mL INJ 2mL 25 MCG IVP (00:14)
[2020-11-03 00:36] LABS: Troponin 5 6HR 29.87 ng/L (0-10); Troponin 5 6HR Delta 1.87 ng/L (0-12)
[2020-11-03] MEDS: clindamycin 600 MG/50 ML PREMIX 100 MG IV (01:12)
[2020-11-03 01:50] LABS: Glucose Point of Care 71 mg/dL (70-110)
[2020-11-03] MEDS: sodium chloride 0.9% 1,000 ML 500 ML IV (03:33)
[2020-11-03 03:59] LABS: ABG PCO2 22.4 mmHg (35-45); ABG PH Result 7.21 (7.35-7.45); Arterial Blood Gas Hematocrit 18.8 % (37-47); Base Excess ABG -17.3 mmol/L (-2.0-2.0); Blood Gas Operator Identificat HARKR; Blood Gas Sample Type Arterial; Oxygen Device NRB
[2020-11-03 04:33] LABS: Mean Corpuscular HGB Conc 28.6 g/dL (30.0-36.0); Mean Corpuscular Hemoglobin 34.1 pg (28.0-34.0); Mean Corpuscular Volume 119.4 fl (81-99); Mean Platelet Volume 11.1 fL (7.4-10.4); Platelet Count 82 10^3/cmm (130-400); Red Cell Distribution Width 20.4 % (12.1-15.1); White Blood Count 2.9 10^3/uL (4.0-10.0)
--- NOTE | 2020-11-03 04:45 | PC.NURSE ---
Wasn't able to get a SpO2 on fingers or forehead, but a mobile pulse ox read 60% so the patient was put on a non-rebreather. ABG was drawn and respiratory therapist indicated it wasn't a respiratory issue, so the NC was put back on the patient. Still not able to a SpO2 but with the Hg at 6.1, Dr. Brooks ordered 2 units of PRBCs. Patient is responsive and moaning, but is being continuously monitored until the blood is ready to transfuse.
[2020-11-03 04:51] LABS: Alanine Aminotransferase 17 U/L (0-33); Albumin Level 1.3 g/dL (3.5-5.2); Alkaline Phosphatase 71 IU/L (35-105); Anion Gap 21.7 (5-19); Aspartate Amino Transferase 36 U/L (0-32); Blood Urea Nitrogen 33 mg/dL (8-23); Calcium 6.1 mg/dL (8.5-10.5); Chloride 106 mmol/L (98-107); Globulin 1.3 g/dL (1.3-4.6); Glomerular Filtration Rate 34.6 mL/min (90-130); Glucose 90 mg/dL (65-115); Magnesium 1.3 mg/dL (1.7-2.3); Osmolality Calculated 283 mOsm/kg (285-295); Phosphorus 4.1 mg/dL (2.5-4.5); Potassium 3.7 mmol/L (3.5-5.1); Sodium 133 mmol/L (136-145); Total Bilirubin 0.8 mg/dL (0.15-1.2); Total Protein 2.6 g/dL (6.6-8.7)
[2020-11-03 04:53] LABS: Iron 11 ug/dL (37-145); Uric Acid 7.6 mg/dL (2.4-5.7)
[2020-11-03 05:04] LABS: Percent Saturation 34.3 % (20-50); Total Iron Binding Capacity 32 mcg/dl; Unsaturated Iron Binding 21 ug/dL (112-347)
[2020-11-03 05:20] LABS: Slide Review Slide Review Perform
[2020-11-03 05:22] LABS: Hematocrit 20.3 % (37.0-47.0); Hemoglobin 5.8 g/dL (11.5-15.3)
[2020-11-03 05:23] LABS: Carbon Dioxide 9 mmol/L (22-29)
[2020-11-03 05:25] LABS: Segmented Neutrophils 33 %; Total Cells Counted 100 (0-100)
[2020-11-03 05:26] LABS: Band Neutrophils Absolute 0.5 10^3/cmm (0.0-1.2); Eosinophils 2 %; Lymphocytes 26 %; Lymphocytes Absolute 0.8 10^3/cmm (1.2-3.4); Monocytes Absolute 0.2 10^3/cmm (0.1-0.6)
[2020-11-03 05:32] LABS: Corrected White Blood Count 2.7 10^3/cmm (4.8-10.8)
[2020-11-03 05:33] LABS: Absolute Neutrophil 1.4 10^3/cmm (1.4-6.5); Giant Platelets Trace; Hypochromasia 1+; Platelet Estimate Decreased (Normal)
[2020-11-03 05:34] LABS: Burr Cells 1+; Schistocytes Trace
[2020-11-03 06:13] LABS: Lactate (Lactic Acid level) 8.2 mmol/L (0.5-2.2)
[2020-11-03 06:14] LABS: Vitamin B12 > 2000 pg/mL (232-1245)
[2020-11-03 06:21] LABS: Glucose Point of Care 69 mg/dL (70-110)
[2020-11-03 06:21] LABS: Folate Level 10.6 ng/mL (4.8-37.3)
[2020-11-03 06:39] LABS: Reticulocyte % 9.1 % (0.5-2.0)
[2020-11-03 06:52] LABS: Fibrinogen 183 mg/dL (174-498)
[2020-11-03 06:54] LABS: Lactate Dehydrogenase 231 U/L (135-214)
[2020-11-03 07:31] LABS: Partial Thromboplastin Time 67.4 SECONDS (23.9-36.7)
[2020-11-03 08:04] LABS: LAB Peripheral Smear Sent for Review
--- NOTE | 2020-11-03 08:05 | XR_ITS ---
WS: [id number] Exam: XR chest 1V portable [id number] Date/Time of Exam: 11/03/2020 8:09 AM Reason For Exam: post CPR Comparison 11/02/2020. There are patchy bilateral widespread infiltrates throughout both lungs have developed since the prev ious study. Left basal pleural effusion is unchanged. Subcutaneous emphysema identified along the rig ht lower rib cage. No obvious pneumothorax. Right IJ catheter ends in the region of the lower one thi rd of the SVC in good position. Heart size is normal. ET tube ends slightly above the seven. The med iastinum is not widened. XR/XR chest 1V portable [id number] IMPRESSION: 1. Interval development of patchy widespread pulmonary infiltrates throughout b oth lungs. 2. Left basal pleural effusion showing little change. 3. Right-sided subcutaneous emphysema. 4. ET tube ending just above the seven. The tube should be retracted 2 to 3 cm for optimal position. The lungs appear to be adequately ventilated. Right IJ c atheter in satisfactory position.
--- NOTE | 2020-11-03 08:09 | ECG_ITS ---
[facility] Test Date: 2020-11-03 Pat Name: Delfino Olvera Department: Room: ICU12 Gender: Female Customer Success Representative: : 1950 Requested By: Kahlil Sloan Order Number: [id number] Mila MD: Christofer Phelan M.D. Measurements Intervals [place] Rate: 80 P: AR: QRS: 89 QRSD: 132 T: 0 QT: 346 QTc: 401 Interpretive Statements ATRIAL FIBRILLATION WITH ABERRANT CONDUCTION OR VENTRICULAR PREMATURE COMPLEXES INTRAVENTRICULAR CONDUCTION DELAY [130+ ms QRS DURATION] SEPTAL MYOCARDIAL INFARCTION [40+ ms Q WAVE IN V1/V2], PROBABLY OLD Compared to ECG 11/02/2020 19:14:33 Aberrant conduction of supraventricular beat(s) now present Intraventricular conduction delay now present Myocardial infarct finding now present Sinus tachycardia no longer present Electronically Signed On 11-04-2020 17:09:58 CDT by Christofer Phelan M.D. [id number] f
--- NOTE | 2020-11-03 08:24 | PM.EVENT ---
Event Note Event Note: Code called overhead. When I arrived patient was in asystole, receiving CPR. Emergency department physician Dr. Joy arrived shortly after. Normal code protocol ensued. She was intubated with an 8 oh endotracheal tube, by direct visualization/laryngoscopy at 25 cm at the lip. Good color change and increase in oxygenation. Throughout the code asystole was the main rhythm and patient received 5 separate doses of epinephrine, 2 A of bicarb, and 2 g of magnesium. By the end of the code of pulse was felt, and norepinephrine drip patient was already on was increased to 20 mcg. At that time her systolic blood pressure was approximately 90, and saturation approximately 80% at the end of the code. Dr. Lewis took over management. Blood was already hanging on my arrival to the code and this was also pushed with a pressure bag during the code. Event Notes Attestations Time Spent in Patient Care: 45 minutes spent in ICU care secondary to Covid situation in this patient with multiple comorbidities.
--- NOTE | 2020-11-03 08:25 | US_ITS ---
WS: [id number] INDICATION: Free fluid TECHNIQUE: Ultrasound abdomen 4 quadrant FINDINGS: Small amount of free fluid/ascites in all 4 quadrants. Not enough fluid for paracentesis. US/US abdomen lmt fluid [id number] IMPRESSION: Small amount of free fluid/ascites in all 4 quadrants.
--- NOTE | 2020-11-03 08:40 | US_ITS ---
WS: [id number] INDICATION: Right hip dislocation TECHNIQUE: Ultrasound right FINDINGS: Ultrasound right hip with history of recent dislocation and recent ORIF. Well-circumscribed small fluid collection about the right hip measuring 4.7 x 4.8 x 3.3 cm with inter nal debris. This is most likely postoperative seroma or hematoma considering recent ORIF. Recommend c orrelation for infectious symptoms. US/US soft tissue/extremity [id number] IMPRESSION: Small fluid collection about the right hip likely postoperative rola suring 4.7 x 4.8 x 3.3 cm with some internal debris
[2020-11-03] MEDS: DOBUTamine drip 500 MG/250 ML PREMIX 11.6 MG IV (08:45)
[2020-11-03] MEDS: propofol 1,000 MG/100 ML INJ 4.64 MG IV (08:48)
[2020-11-03] MEDS: sodium bicarbonate 150 MEQ in dextrose 5% 1,000 ML 100 MEQ IV (08:53)
--- NOTE | 2020-11-03 08:59 | PC.CHAP ---
Pastoral Care Encounter/Spiritual Assessment Type of Contact [] Declined steward/stewardess deck visit [] Patient/Family/Request visit [] Outpatient visit [] Follow-up visit [] Physician referral [] Code/Alert [x] Routine visit [] Staff referral [] Actively dying [] Patient sleeping [] Family support [] [] Out of room [] Palliative care [] [] Receiving care in room [] Pre-surgical visit [] Trauma [] Long length of stay [x] ICU visit [x] Other: code blue called... doctors continue to work on patient Relational/Emotional Strength [] Patient feels connected with others/family/visitors/staff [] Distress [] Loneliness/isolation [] Abandonment Spirituality of Patient [] Person of Luna [] Attends Taoism of their Luna [] Believes in Prayer [] Reads Bible or Congregational materials [] There are Spiritual issues to be addressed Alum Plant Supervisor Interventions [x] Prayer [] Active listening [] Non-anxious presence [] Spiritual/emotional support [] Crisis/trauma care [] Spiritual counseling [] Bereavement support [] Provided bereavement packet [] Provided Bible/devotional materials [] Provided toy/stuffed animal, coloring book to patient or family member [] Provided Communion [] Anointing/Dickens [] Salvation [x] Completed spiritual assessment [] Other: Impact on Illness or Injury [] Angry [] Fearful [] Anxious [] Often cries [] Exhaustion [] Unable to work [] Unable to attend hoahaoism [] Unable to walk/stand [] Unable to read [] Unable to drive [] Unable to eat/drink [] Unable to sleep [] Unable to be with family [] Patient intubated [] Other: Summary Time spent with patient
[2020-11-03] MEDS: pantoprazole 40 mg SDV IVP (09:01)
[2020-11-03] MEDS: norepinephrine 8 MG in dextrose 5 % 500 ML 304.8 MG IV (09:05)
--- NOTE | 2020-11-03 09:36 | PC.NURSE ---
After shift report, nurse started morning assessments on patient. During initial assessment, monitor alarmed asystole, patient was unresponsive and was found to have no pulse. NUrse initiated CPR while a second nurse readied the crash cart and called a code. Code strated at 0842. Dr joseph and Dr Mason at bedside. Asystole algorithm followed. ROSC acheived at 0902. Additional orders received for blood work, chest xr, ekg, ultrasound. New meds ordered, see MAY. Dr joseph called family.
[2020-11-03 09:40] LABS: Arterial Blood Gas Hematocrit 30.3 % (37-47); Base Excess ABG -28.8 mmol/L (-2.0-2.0); Blood Gas Allen Test Pos; Blood Gas Operator Identificat CAK; Blood Gas Sample Type Not specified; Carboxyhemoglobin 0.2 %THgb (0.4-20.1); HCO3 ABG 6.6 mmol/L (22-26); HGB O2 Sat 77.3 % (95-100); Methemoglobin 2.2 % (0.4-1.5); Oxygen Device AMBU; Oxygen Saturation ABG 79.2; PO2 ABG 73.1 mmHg (80.0-100.0); Potassium Level - ABG 6.5 mmol/L (3.5-5.0); Total Hemoglobin 9.9 g/dL (12-16)
--- NOTE | 2020-11-03 09:43 | PC.NURSE ---
Post CPR, patient intially had a systolic Blood pressure of 90, but it continues to drop. Nurse alerted DR joseph. Recieved orders to continue titrating up on levophed, and started a bicarb bolus. BLood and FFP has been ordered and will be delivered by blood bank.
--- NOTE | 2020-11-03 09:45 | PC.NURSE ---
Dr Lewis continues to be at bedside and has spoken to patient's family. Nurse received blood and spiked bag, before starting the blood, the patients family changed status to DNR/DNI and comfort care. At this time, patient also went into asystole. Fiance is at bedside. TIme of called as [address] lewis with policy writer typist verifying no detectable heart beat.
[2020-11-03 09:54] LABS: Alanine Aminotransferase 16 U/L (0-33); Albumin Level 0.9 g/dL (3.5-5.2); Alkaline Phosphatase 72 IU/L (35-105); Anion Gap 32.5 (5-19); Aspartate Amino Transferase 64 U/L (0-32); Blood Urea Nitrogen 29 mg/dL (8-23); Chloride 105 mmol/L (98-107); Globulin 0.8 g/dL (1.3-4.6); Glomerular Filtration Rate 40.9 mL/min (90-130); Glucose 286 mg/dL (65-115); Iron 21 ug/dL (37-145); Magnesium 3.3 mg/dL (1.7-2.3); Osmolality Calculated 308 mOsm/kg (285-295); Phosphorus 7.3 mg/dL (2.5-4.5); Potassium 5.5 mmol/L (3.5-5.1); Sodium 141 mmol/L (136-145); Total Bilirubin 0.5 mg/dL (0.15-1.2); Total Protein 1.7 g/dL (6.6-8.7)
[2020-11-03 10:00] LABS: Troponin(5th) Baseline 37 ng/L (0-10)
--- NOTE | 2020-11-03 10:00 | PC.SOCIAL ---
Patient prior to being seen by CM/SS
[2020-11-03 10:01] LABS: Procalcitonin 11.43 ng/mL (0-0.5)
--- NOTE | 2020-11-03 10:06 | PC.NURSE ---
MTS contacted. pt will be brought to the morgue when family has left.
[2020-11-03 10:08] LABS: Ferritin 1254 ng/mL (15-150)
[2020-11-03 10:18] LABS: Carbon Dioxide 9 mmol/L (22-29)
[2020-11-03 10:19] LABS: Calcium 5.2 mg/dL (8.5-10.5)
[2020-11-03 10:38] LABS: Erythrocyte Sedimentation Rate 10 mm/hr (0-15)
[2020-11-03 11:40] LABS: Glucose Point of Care 282 mg/dL (70-110)
[2020-11-03 12:18] LABS: Basophils # 0.1 10^3/uL (0.0-0.1); Basophils % 1.4 %; Eosinophils # 0.2 10^3/uL (0.0-0.8); Eosinophils % 6.1 %; Hematocrit 25.1 % (37.0-47.0); Hemoglobin 7.5 g/dL (11.5-15.3); Lymphocytes # 0.7 10^3/uL (0.8-4.8); Lymphocytes % 20.4 %; Mean Corpuscular HGB Conc 29.9 g/dL (30.0-36.0); Mean Corpuscular Hemoglobin 32.9 pg (28.0-34.0); Mean Corpuscular Volume 110.1 fl (81-99); Mean Platelet Volume 12.2 fL (7.4-10.4); Monocytes # 0.3 10^3/uL (0.2-0.9); Neutrophils # 2.27 10^3/uL (1.8-7.7); Neutrophils % 63.4 %; Nucleated Red Blood Cells # 0.4 /100WBC; Nucleated Red Blood Cells % 10.9 %; Platelet Count 33 10^3/cmm (130-400); Red Blood Count 2.28 10^6/uL (4.1-5.3); Red Cell Distribution Width 18.8 % (12.1-15.1); White Blood Count 3.6 10^3/uL (4.0-10.0)
--- NOTE | 2020-11-03 13:18 | PM.CCN ---
Critical Care Event Note Critical Care Event The high probability of a clinically significant, sudden or life threatening deterioration of the patient's [] system(s) required my full and direct attention, intervention and personal management. The critical care time is as shown. This time is in addition to time spent performing any reported procedures but includes the following: [x] Data and vital sign review and interpretation [x] Patient assessment, examination and intervention [x] Documentation [x] Medication orders and management Critical Care Time Critical Care Time: Code activated: Yes Critical Care Time (min): 10 Procedures Intubation Time out performed: No Sedative: none Laryngoscope: Tremaine ET tube size: 8.5 ET tube uncuffed: No Tube secured depth (cm): 22 Tube secured location: teeth Tube placement confirmation: visualized tube passing through cords, equal breath sounds bilaterally, no breath sounds over epigastrium, confirmation by capnometry and color change noted Patient tolerated procedure: well Intubation complications: none Additional comments: Good color change on capnography was first attempted intubation. After approximately 3 to 4 breaths by bag valve tube blood was noted in the endotracheal tube. Sats were improving confirmed placement of tube by auscultation. Dr. Guerra is in the room and has assumed management of the code. Coding Level of Care Code Acute Utility Sales And Service Manager for Bennett Santiago
[2020-11-03 14:19] LABS: Blood Gas Sample Site ARTLINE
--- NOTE | 2020-11-03 15:16 | PC.SOCIAL ---
Notified [facility] [phone] who is picking up patient that Dr Lewis will be signing certificate per Dr Shay Mason. Notified Mely at [facility] in [place] [phone] that we do not have a SS# on file here.
--- NOTE | 2020-11-18 13:04 | PM.DDS ---
Discharge Providers DDS Date of Admission: 11/02/20 19:17 Date Summary Completed: 11/18/20 Attending Provider at Admission: Olivia Brooks MD Attending Provider at Discharge: Rogerio Lewis MD Primary Care Provider: ANDREW Witt Diagnoses Hospital Diagnoses (1) Septic shock: (2) Hypoglycemia: (3) Acute kidney injury: (4) History of infection: Problem details: right hip, treated in [place], [place] (5) Macrocytic anemia: (6) Elevated brain natriuretic peptide (BNP) level: (7) Hypoalbuminemia: (8) Sacral decubitus ulcer: Qualifiers: Pressure injury stage: unspecified pressure injury stage Qualified Code(s): L89.159 - Pressure ulcer of sacral region, unspecified stage (9) Pressure ulcers of skin of multiple topographic sites: (10) Chronic anticoagulation: Problem details: xarelto, for DVT (11) Hx pulmonary embolism: (12) DVT (deep venous thrombosis): Problem details: left lower extremity Qualifiers: DVT location: lower extremity Affected thrombotic vein of extremity: unspecified vein of extremity Chronicity: unspecified Laterality: unspecified laterality Qualified Code(s): I82.409 - Acute embolism and thrombosis of unspecified deep veins of unspecified lower extremity (13) Hypothyroid: Problem details: TSH 09/16/20 0.92, Free T4 1.14 Qualifiers: Hypothyroidism type: unspecified Qualified Code(s): E03.9 - Hypothyroidism, unspecified (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: Problem details: right hip, 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, has had infection around prosthesis Qualifiers: Encounter type: sequela Laterality: right Qualified Code(s): T84.020S - Dislocation of internal right hip prosthesis, sequela (15) Hx of bilateral hip replacements: Reason for Visit Reason for Visit: HYPOTENSION; SLURRED SPEECH Summary Date and Time of Date of : 11/03/20 Summary Summary: This is a 69-year-old female with a 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 with Xarelto, developed after a right hip arthroplasty status post infection, history of right hip arthroplasty with septic joint status post 6 weeks of IV antibiotics, history of chronic right hip arthroplasty dislocation, chronic right hip pain, history of sacral decubitus ulcers, history of hypothyroidism, history of neuropathy, history of cervical cancer, history of gastric bypass, hypertension, no significant cardiovascular history, no history of significant history of lung disease, no history of CVAs, I was not able to obtain any history from the patient as she was intubated, currently in shock. Most of the history was obtained from patient's fianc? who is at bedside, and patient's daughter and son who were in [place] at the time. Patient is originally a resident of [facility], was moving to [place]. Patient presented to [facility] due to weakness, altered mental status Patient was admitted to [facility] for multifactorial shock, septic and hemorrhagic shock, multiorgan failure, acute renal failure, anemia, DIC, elevated INR, lactic acidosis, acidemia, NSTEMI,. Source of septic shock was possible right joint infection, and superficial skin infections, admitting provider did have a discussion with orthopedic service for possible transfer to higher level of care as orthopedic service felt uncomfortable managing her here at [facility] without the appropriate support, with concerns for complicated septic joint, however patient was clinically unstable to be transferred to tertiary level care. Hemorrhagic shock shock secondary to GI bleed, and internal bleeding secondary to Xarelto therapy. Patient was managed in the ICU, receiving broad-spectrum antibiotic therapy, blood products, pressor therapy and clinically monitor. On the morning of 11/03/2020, patient went into asystole, receiving CPR, was intubated, was Ambu bag, received 5 doses epinephrine, 2 A of bicarb, 2 g of mag, manage on Levophed drip, return of circulation was obtained, was maintained on Levophed drip, maintained on the ventilator, and I took over management. Likely patient had developed hemorrhagic shock secondary to Xarelto therapy, ultrasound of the abdomen showed fluid in all 4 quadrants, in addition she was also found to have a thrombus on the right GSV into right common femoral vein. It certainly possible patient could have developed a pulmonary emboli resulting in asystole, however anticoagulation during this time was contraindicated given concerns for hemorrhagic shock, she was too unstable to be transferred for CT angiogram. For her hemorrhagic shock, she was placed on multiple pressors up to maximal therapy, octreotide drip, Protonix, receiving fluid therapy, receiving blood product therapy however continued to have significant hypotensive episodes, and maps consistently less than 65. After I exhausted all maximal medical therapy including blood products, octreotide, Protonix fluid therapy, pressor therapy, broad-spectrum antibiotic therapy, however patient continued to have evidence of significant hemorrhagic and hypovolemic shock with mean arterial pressures consistently less than 65. She continued to have mottling of bilateral lower extremities and up to the abdomen, pulses bilateral lower extremities were barely palpable, pupils were pinpoint, minimally reactive to light, she did not withdraw from any pain, she remained on 100% FiO2 on the ventilator, sinus tachycardia, tachypneic. I did also discuss the case with general surgery, who advised to continue medical management as she would be a high risk of surgical intervention. I discussed the case in detail with the patient's next of kin including son and daughter, I discussed the case with them multiple times over the phone, advised him that patient's status is critical, prognosis is poor, I have exhausted all maximal medical therapy however their mother continues to have signs of significant hemorrhagic shock. I could continue my medical therapy I advised, however she has had asystole for greater than 15 minutes, she is in significant hemorrhagic shock not responding to medical therapy, and I think the likelihood of her having a meaningful recovery, and surviving this event is fairly unlikely. Options I discussed was continuing medical intervention versus withdrawing care. After discussing the risks and benefits of each options, they voiced understanding, all questions answered, they advised me that their mother would not want this, she would want to remain comfortable, they said she would not want all these life-sustaining measures if the likelihood of her not recovering is unlikely, they agreed to withdrawal of all life supportive care, and proceed with comfort care. I also discussed this with patient's miryam? who was at bedside, he also agreed to proceed with supportive care, and comfort care. Patient 11/03/2020 Additional Data Confirmation of as documented by pronouncing clinician: no pulse Family: at bedside Attending/PCP notified?: Attending notified Advance directives?: No Discharge Plan Discharge Patient Disposition: Probable Cause of Probable cause of : Cardiac arrest DS Attestations Time Spent in /Discharge Care*: greater than 30 min Quality - AMI: AMI present?: No Quality - Stroke: CVA present?: No Quality - VTE: VTE present?: No Deep Vein Thrombosis/Pulmonary Embolism Present on Admission: No Coding Level of Care Code Acute Crown And Bridge Technician for Chg Fwd Diagnoses Septic shock A41.9; R65.21 Hypoglycemia E16.2 Acute kidney injury N17.9 History of infection Z86.19 Macrocytic anemia D53.9 Elevated brain natriuretic peptide (BNP) level R79.89 Hypoalbuminemia E88.09 Sacral decubitus ulcer L89.159 Pressure injury stage: unspecified pressure injury stage Pressure ulcers of skin of multiple topographic sites L89.90 Chronic anticoagulation Z79.01 Hx pulmonary embolism Z86.711 DVT (deep venous thrombosis) I82.409 DVT location: lower extremity Affected thrombotic vein of extremity: unspecified vein of extremity Chronicity: unspecified Laterality: unspecified laterality Hypothyroid E03.9 Hypothyroidism type: unspecified Failed total hip arthroplasty with dislocation T84.020S Encounter type: sequela Laterality: right Hx of bilateral hip replacements Z96.643
== END 2020-11-03 13:19 | disposition expired | DRG 871 ==
LOC: ER 19:26 → ICU 19:30
PROVIDERS: Internal Medicine; Admitting Provider Hospitalist; Emergency Provider Emergency Medicine; PCP Nurse Practitioner Family; Visit Provider Family Medicine
DX: A41.9 Sepsis, unspecified organism (principal); R65.21 Severe sepsis with septic shock; I21.4 Non-ST elevation (NSTEMI) myocardial infarction; I82.411 Acute embolism and thrombosis of right femoral vein; E87.2 Acidosis; G93.40 Encephalopathy, unspecified; N17.9 Acute kidney failure, unspecified; K92.2 Gastrointestinal hemorrhage, unspecified; I95.9 Hypotension, unspecified; G89.29 Other chronic pain; K21.9 Gastro-esophageal reflux disease without esophagitis; F32.9 Major depressive disorder, single episode, unspecified; Z85.41 Personal history of malignant neoplasm of cervix uteri; Z86.711 Personal history of pulmonary embolism; I10 Essential (primary) hypertension; E03.9 Hypothyroidism, unspecified; M19.90 Unspecified osteoarthritis, unspecified site; G25.81 Restless legs syndrome; Z98.84 Bariatric surgery status; T84.02 Dislocation of internal joint prosthesis; Y79.1 Therapeutic (nonsurgical) and rehabilitative orthopedic devices associated with adverse incidents; I46.9 Cardiac arrest, cause unspecified; D53.9 Nutritional anemia, unspecified; E16.2 Hypoglycemia, unspecified; L89.899 Pressure ulcer of other site, unspecified stage; L89.159 Pressure ulcer of sacral region, unspecified stage; R57.8 Other shock; Z96.643 Presence of artificial hip joint, bilateral; Z51.5 Encounter for palliative care; Z66 Do not resuscitate
CPT/HCPCS: 36416; 36430; 36600; 51702; 70450; 71045; 71260; 72125; 74177; 76705; 76882; 80051; 80053; 80500; 82330; 82550; 82607; 82728; 82746; 82803; 82805; 82962; 83010; 83540; 83550; 83605; 83615; 83735; 83880; 84100; 84145; 84443; 84484; 84550; 85007; 85025; 85045; 85384; 85610; 85651; 85730; 86140; 86850; 86900; 86920; 86927; 87040; 87077; 87186; 87205; 93005; 93970; 93971; 94002; 94799; 96365; 96366; 96367; 96372; 99291; C1751; C9113; J0171; J0743; J1250; J1650; J2543; J2704; J3010; J3370; J3475; J3490; J7030; J7040; J7799; P9016; P9047; Q9967